=== PATIENT | male | born 1995 | race Caucasian/White ===

== ENCOUNTER 2020-01-22 20:34 | Emergency (ER) | payer SELFPAY ==
--- NOTE | ~2020-01-22 | CT_ITS ---
EXAMINATION: CT facial bones wo con DATE: 01/22/2020 21:11 INDICATION: Facial pain TECHNIQUE: Computed tomography (CT) of the facial bones and maxillofacial region was performed withou t intravenous contrast. The dose-length product (DLP) was 589.20 mGy-cm. Automated exposure control a nd iterative reconstruction technique were employed. COMPARISON: None. FINDINGS: There is subtle irregularity along the anterior aspect of the inferolateral margin of the l eft nasal bone. No additional facial fracture is identified. The orbits are normal. There is normal p neumatization and aeration of the paranasal sinuses. The globes are intact. IMPRESSION: 1. Likely subtle fracture of the left nasal bone. Reviewed, dictated and finalized at location A.
[2020-01-22 20:52] VITALS: BP 152/74; PULSE 62; RESP 18; TEMP 36.2; O2SAT 100
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
== END 2020-01-22 22:48 | disposition home or self-care (01) ==
PROVIDERS: Emergency Provider Emergency Medicine
DX: S02.2XXA Fracture of nasal bones, initial encounter for closed fracture (principal); Y04.2XXA Assault by strike against or bumped into by another person, initial encounter
CPT/HCPCS: 70486; 99284

== ENCOUNTER 2020-01-28 20:44 | Observation (INO) | payer OTHER, SELFPAY ==
--- NOTE | ~2020-01-28 | CT_ITS ---
EXAMINATION: CT facial bones w con EXAM DATE: 01/28/2020 22:13 INDICATION: Nasal drainage. Recent nasal fracture. TECHNIQUE: Spiral CT of the facial bones was acquired in the axial plane following intravenous inject ion of 75 mL Omnipaque 350. Coronal reformatted images were also reviewed. The dose-length product (DLP) for this examination was 713.41 mGy-cm. The exposure was tailored according to patient size, a nd iterative reconstruction (ASIR) was used as additional dose reduction technique. There is no prio r study for comparison. FINDINGS: Again there may be slight buckling of the left nasal bone. Interval development of organiz ed appearing fluid collection within the nasal cavity measuring 2.0 x 2.6 x 3.1 cm, along the cartila ginous nasal septum anteriorly, could be an abscess. This should be able to be seen through direct vi sualization. No bony erosion. The orbits, globes and extraocular muscles are unremarkable. The vis ualized sinuses and mastoid air cells are well aerated. IMPRESSION: 1. Interval development of organized fluid collection along anterior, cartilaginous portion of nasal septum which could be abscess. 2. Probable acute nondisplaced left nasal bone fracture. Reviewed, dictated and finalized at location B. IMPRESSION: 1. Interval development of organized fluid collection along anterior, cartilag inous portion of nasal septum which could be abscess. 2. Probable acute nondisplaced left nasal bone fracture.
[2020-01-28 20:46] VITALS: BP 162/80; PULSE 100; RESP 18; TEMP 37.9; O2SAT 100
[2020-01-28 20:51] VITALS: TEMP 37.2
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
[2020-01-28] MEDS: SODIUM CHLORIDE 0.9% IV 1,000 ML 999 ML IV CONT (21:14)
[2020-01-28] MEDS: CLINDAMYCIN 900 MG/NS 50 ML 900 MG/50 ML PIGGYBACK 50 MG IVPB (21:16)
[2020-01-28 21:25] LABS: Basophils Percent Auto 0.4 % (0.2-1.2); Eosinophils Absolute Auto 0.1 K/mm3 (0-0.3); Eosinophils Percent Auto 0.7 % (0-4.4); Hematocrit 41.4 % (42.0-52.0); Hemoglobin 14.4 g/dL (14.0-18.0); Immature Granulocyte Absolute 0.03 K/mm3 (0.00-0.031); Immature Granulocyte Percent A 0.3 % (0-0.5); Lymphocytes Absolute Auto 0.92 K/mm3 (0.9-3.2); Lymphocytes Percent Auto 9.5 % (18.3-44.2); Mean Corpuscular HGB Conc 34.8 g/dl (32-36); Mean Corpuscular Hemoglobin 30.2 pg (26-34); Mean Corpuscular Volume 86.8 fl (80-100); Mean Platelet Volume 10.4 fl (7.4-10.4); Monocytes Absolute Auto 0.9 K/mm3 (0.1-0.6); Monocytes Percent Auto 8.8 % (2.6-8.5); Neutrophils Absolute Auto 7.7 K/mm3 (1.3-6.7); Neutrophils Percent Auto 80.3 % (45.5-73.1); Platelet Count Result 320 k/mm3 (150-375); Red Blood Count 4.77 M/mm3 (4.6-6.20); Red Cell Distribution Width 12.3 % (11.5-14.5); White Blood Count 9.6 K/mm3 (4.5-10.0)
[2020-01-28 21:33] LABS: Prothrombin Time 12.7 Seconds (11.1-14.7)
[2020-01-28 21:34] LABS: Partial Thromboplastin Time 28.6 SECONDS (22.3-36.8)
[2020-01-28 21:35] LABS: Alanine Aminotransferase 68 U/L (4-50); Albumin Level 4.6 g/dL (3.5-5.1); Alkaline Phosphatase 59 U/L (38-126); Aspartate Amino Transferase 35 U/L (17-59); Bilirubin,Total 2.8 mg/dL (0.2-1.3); Blood Urea Nitrogen 16 mg/dL (9-20); Calcium 9.4 mg/dL (8.4-10.2); Carbon Dioxide 26 mmol/L (22-30); Chloride 99 mmol/L (98-107); Estimated CRCL calculation 98 ml/min; Estimated Glomerular Filt Rate > 60; Glucose 95 mg/dL (75-110); Sodium 136 mmol/L (137-145)
[2020-01-28] MEDS: IBUPROFEN IV 800 MG/200 ML 800 MG/200 ML BAG 400 MG IVPB (22:55)
[2020-01-29] VITALS (13 sets, daily range): BP systolic 115–139; BP diastolic 65–91; PULSE 57–84; RESP 12–18; TEMP 36.2–37.1; O2SAT 92–100; BMI 31.0
--- NOTE | 2020-01-29 01:06 | PC.NURSE ---
This patient, Demarcus Guy, was admitted to Medical Room 260-01 at 0100. Patient/family oriented to hospital policies and general routines including ID bracelet, bed and alarms, visiting hours, pain management, procedures, bathroom and other care routines, personal items, smoking policy, room service/diet, and visiting hours. Valuables list has been completed. Information on how to activate the Rapid Response Team has been discussed. Patient/Family are encouraged to report perceived risks to care and to ask questions if they do not understand what they are told or what they should do.
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
[2020-01-29] MEDS: CLINDAMYCIN 900 MG/NS 50 ML 900 MG/50 ML PIGGYBACK 50 MG IVPB ×2 (04:59→12:40)
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
--- NOTE | 2020-01-29 12:32 | WPDANESEPPF ---
Anes - Initial Pre Proc Eval Procedure: Operation Date: 01/29/20 16:30 Proposed Procedures p Incision and Drainage of Nasal Abscess - Freddie High MD Date/Time: 01/29/20 12:32 Surgeon: Elaine Puentes PA-C Pre Op Diagnosis: Yellow nasal drainage, fever Patient Data Age: 24 Gender: M Height: 5 ft 10 in Weight: 98.2 kg Last Vital Signs Temp 36.2 C L 01/29/20 06:00 Pulse 57 L 01/29/20 08:00 Resp 16 01/29/20 08:00 BP 121/82 01/29/20 06:00 Pulse Ox 98 01/29/20 08:00 Allergies Allergy/AdvReac Type Severity Reaction Status Date / Time No Known Allergies Allergy Verified 01/28/20 20:52 Home Medications Medication Instructions Recorded Confirmed Type clindamycin HCl 150 mg PO Q8H 10 Days #30 cap 01/28/20 Rx ibuprofen [IBU] 600 mg PO QID PRN #10 tablet 01/28/20 Rx Laboratory Tests 01/28/20 01/28/20 01/28/20 21:17 21:17 21:17 WBC 9.6 K/mm3 K/mm3 (4.5-10.0) RBC 4.77 M/mm3 M/mm3 (4.6-6.20) Hgb 14.4 g/dL g/dL (14.0-18.0) Hct 41.4 % L % (42.0-52.0) MCV 86.8 fl fl (80-100) MCH 30.2 pg pg (26-34) MCHC 34.8 g/dl g/dl (32-36) RDW 12.3 % % (11.5-14.5) Plt Count 320 k/mm3 k/mm3 (150-375) MPV 10.4 fl fl (7.4-10.4) Immature Gran % (Auto) 0.3 % % (0-0.5) Neut % (Auto) 80.3 % H % (45.5-73.1) Lymph % (Auto) 9.5 % L % (18.3-44.2) [place] % (Auto) 8.8 % H % (2.6-8.5) Eos % (Auto) 0.7 % % (0-4.4) Baso % (Auto) 0.4 % % (0.2-1.2) Lymph # (Auto) 0.92 K/mm3 K/mm3 (0.9-3.2) [place] # (Auto) 0.9 K/mm3 H K/mm3 (0.1-0.6) Eos # (Auto) 0.1 K/mm3 K/mm3 (0-0.3) Baso # (Auto) 0.0 K/mm3 K/mm3 (0.0-0.1) Abs Immat Gran (auto) 0.03 K/mm3 K/mm3 (0.00-0.031) Absolute Neuts (auto) 7.7 K/mm3 H K/mm3 (1.3-6.7) Absolute Nucleated RBC 0.0 K/mm3 K/mm3 (0.0-0.012) Nucleated RBC % 0.0 % % (0.0-0.2) PT 12.7 Seconds Seconds (11.1-14.7) INR 1.0 APTT 28.6 SECONDS SECONDS (22.3-36.8) Sodium 136 mmol/L L mmol/L (137-145) Potassium 4.0 mmol/L mmol/L (3.4-5.0) Chloride 99 mmol/L mmol/L (98-107) Carbon Dioxide 26 mmol/L mmol/L (22-30) BUN 16 mg/dL mg/dL (9-20) Creatinine 1.20 mg/dL mg/dL (0.7-1.3) Estim Creat Clear Calc 98 ml/min ml/min Estimated GFR > 60 (59 - ) Glucose 95 mg/dL mg/dL (75-110) Calcium 9.4 mg/dL mg/dL (8.4-10.2) Total Bilirubin 2.8 mg/dL H mg/dL (0.2-1.3) AST 35 U/L U/L (17-59) ALT 68 U/L H U/L (4-50) Alkaline Phosphatase 59 U/L U/L (38-126) Total Protein 8.0 g/dL g/dL (6.3-8.2) Albumin 4.6 g/dL g/dL (3.5-5.1) Patient hx anesthesia problems: none Family hx anesthesia problems: none [facility] Past Medical History Medical History No significant medical problems Surgical History Surgical History Hx of cholecystectomy Family History Family History Father Healthy adult Mother Healthy adult Social History Social History Smoking status: Never smoker Tobacco type: smokeless tobacco Smokeless tobacco user: chewing tobacco Second hand tobacco smoke exposure: No Additional smoking assessment comments: He has chewed tobacco since he was a teenager. Alcohol intake: current Drinks per week: 4 Alcohol use details: He drinks 3-4 alcoholic beverages each week. Substance use: never Substance use type: does not use Additional occupation/education comments: He works in [employer]
[2020-01-29] MEDS: LACTATED RINGERS 1,000 ML 30 ML IV CONT (12:35)
[2020-01-29] MEDS: OXYMETAZOLINE HCL 0.05% NAS 15 ML BTL (*BKC) 1 SPRAY NASAL (13:00)
[2020-01-29] MEDS: LIDO 1%/EPINEPHRINE 1:100,000 20 ML VIAL 5 ML INFILTRATE (13:00)
--- NOTE | 2020-01-29 13:03 | PM.PROC ---
Procedure Note - Detailed Date of procedure: 01/29/20 Pre-op diagnosis: Yellow nasal drainage, fever Nasal septal abscess, septal fracture Post-op diagnosis: same Procedure performed: Incision and drainage of nasal septal abscess, reduction of septal fracture. Description of procedure: On the date of surgery, the patient was seen as a consult on the surgical floor. Decision made to undergo surgery. He was brought to the OR and underwent GETA. Timeout performed and he was draped in sterile fashion. 1% lidocaine was infiltrated into the nasal septum, and afrin cottonoids placed bilaterally. On the right side, the abscess was lanced with a 15 blade. 10-15cc of purulent absces fluid was evacuated. This may have been a septal hematoma that was then infected. The cavity was copiously irrigated. There was evidence of loss of a portion of the cartilaginous septum. The septum that remained was noted to be severely deviated to the left. [place] forceps were used to grasp the septum and try and reapproximate to the midline. This appeared to improve the positioning of the septum, although still with some deviation. This will likely require elective repair at a later date. Care of patient then returned to anesthesia who extubated him, woke him up and transferred to PACU for recovery in stable condition. Anesthesia: GETA Surgeon: Freddie High MD Estimated blood loss (mL): 10 Drains: No Packing: No Pathology: yes (culture of infection taken) Complications: None Condition: stable Disposition: floor Findings: Septal abscess, 10-15ml. Reduced septal fracture.
--- NOTE | 2020-01-29 13:08 | WPDPN ---
Progress Note: A&P Assessment and Plan (1) Nasal septal abscess: Code(s): J34.0 - Abscess, furuncle and carbuncle of nose Status: Acute Assessment and Plan: Underwent successful I&D. Should be ok to transition to PO antibiotics and discharge home per primary team. Would like to follow up in the clinic this . Call with questions or concerns. Objective Data Vital Signs Vital Signs: Vital Signs - 24 hr 01/28/20 20:46 01/28/20 20:51 01/29/20 01:00 Temperature 37.9 C H 37.2 C 36.7 C Pulse Rate 100 84 Respiratory Rate 18 18 Blood Pressure 162/80 H 136/81 Pulse Oximetry 100 99 01/29/20 01:21 01/29/20 01:49 01/29/20 06:00 Temperature 36.9 C 36.2 C L Pulse Rate 72 57 L Respiratory Rate 18 16 Blood Pressure 115/65 121/82 Pulse Oximetry 98 96 98 01/29/20 08:00 Temperature Pulse Rate 57 L Respiratory Rate 16 Blood Pressure Pulse Oximetry 98 Intake/Output Intake/Output: Intake & Output 01/26/20 01/27/20 01/28/20 01/29/20 23:59 23:59 23:59 23:59 Intake Total 1250 50 Output Total 550 Balance 1250 -500 Meds/Results Medications: Active Medications Generic Name Dose Route Start Last Admin Trade Name Freq PRN Reason Stop Dose Admin Fentanyl Citrate 25 mcg 01/29/20 12:33 Sublimaze IV PUSH Q2M PRN Pain Clindamycin/Sodium Chloride 900 mg in 50 mls @ 50 mls/hr 01/29/20 05:00 01/29/20 12:40 Cleocin 900 Mg/Ns 50 Ml IVPB 50 mls/hr Q8H WILLIAM Administration Lactated Ringer's 1,000 mls @ 30 mls/hr 01/29/20 12:35 01/29/20 12:35 Lr - Lactated Ringers Iv IV CONT 30 mls/hr .Q24H WILLIAM Administration Lactated Ringer's 1,000 mls @ 30 mls/hr 01/29/20 12:35 Lr - Lactated Ringers Iv IV CONT .Q24H WILLIAM Lidocaine/Epinephrine 5 ml 01/29/20 13:00 01/29/20 13:00 Lido 1%/Epinephrine 1:100,000 INFILTRATE 01/29/20 13:01 20 ml ONCE ONE Administration Ondansetron HCl 4 mg 01/29/20 00:01 Zofran Inj IV PUSH Q4H PRN Nausea Ondansetron HCl 4 mg 01/29/20 12:33 Zofran Inj IV PUSH ONCE PRN Nausea Oxymetazoline HCl 1 spray 01/29/20 13:00 01/29/20 13:00 Afrin Nasal NASAL 1 spray ONCE PRN Administration Congestion Radiology Results: ITS Impressions Face CT 01/29/20 08:24 IMPRESSION: 1. Interval development of organized fluid collection along anterior, cartilaginous portion of nasal septum which could be abscess. 2. Probable acute nondisplaced left nasal bone fracture. Labs Labs: Laboratory Results - last 24 hr 01/28/20 01/28/20 01/28/20 21:17 21:17 21:17 WBC 9.6 RBC 4.77 Hgb 14.4 Hct 41.4 L MCV 86.8 MCH 30.2 MCHC 34.8 RDW 12.3 Plt Count 320 MPV 10.4 Immature Gran % (Auto) 0.3 Neut % (Auto) 80.3 H Lymph % (Auto) 9.5 L [place] % (Auto) 8.8 H Eos % (Auto) 0.7 Baso % (Auto) 0.4 Lymph # (Auto) 0.92 [place] # (Auto) 0.9 H Eos # (Auto) 0.1 Baso # (Auto) 0.0 Abs Immat Gran (auto) 0.03 Absolute Neuts (auto) 7.7 H Absolute Nucleated RBC 0.0 Nucleated RBC % 0.0 PT 12.7 INR 1.0 APTT 28.6 Sodium 136 L Potassium 4.0 Chloride 99 Carbon Dioxide 26 BUN 16 Creatinine 1.20 Estim Creat Clear Calc 98 Estimated GFR > 60 Glucose 95 Calcium 9.4 Total Bilirubin 2.8 H AST 35 ALT 68 H Alkaline Phosphatase 59 Total Protein 8.0 Albumin 4.6
--- NOTE | 2020-01-29 15:17 | PM.DS ---
DS: Admitting Diagnosis Admitting Diagnosis Admitting Diagnosis: Abscess, furuncle and carbuncle of nose DS: Discharge Diagnosis Discharge Diagnosis (1) Nasal septal abscess: Code(s): J34.0 - Abscess, furuncle and carbuncle of nose Status: Acute Assessment and Plan: He had a recent nasal fracture on 01/22/2020 and presented with purulent nasal drainage and fever with T-max 100.3?. Facial CT demonstrated heterogenous rim enhancing lobulated fluid collection measuring 2 x 2.6 x 3.1 cm abscess within the cartilaginous septum. He was seen in consultation by ENT and underwent incision and drainage of nasal septal abscess and septal fracture reduction by Dr. High on 01/29/2020. He was started on IV clindamycin and he will continue oral clindamycin as an outpatient. He will follow-up with Dr. High in 3 days. He was instructed to use nasal saline spray 3 times per day. DS: Summary Hospital Course Reason for hospitalization: Nasal pain Hospital Course: Date of admission: 01/28/2020 Date of discharge: 01/29/2020 Demarcus Guy is a 24-year-old male with a history of recent nasal fracture on 01/22/2020 who presented to the emergency department on 01/29/2020 with complaints of purulent drainage from the left nostril and fever with T-max of 100.3?. At presentation, HR 100, BP 162/80, T 100.3?, an WBC 9.6. He was admitted to the hospitalist service and was seen in consultation by ENT. He underwent incision and drainage on 01/29/2020. His fever resolved. His pain was well controlled and he tolerated the procedure well. Given clinical improvement, he was determined to no longer require inpatient care. He will continue oral antibiotics and follow-up with Dr. High in 3 days. He was also recommended to establish care with a primary care provider and schedule an appointment within 1-2 weeks to discuss his hospital stay. Status at Discharge Functional status at discharge: independent ambulation Overall status at discharge: patient is progressing back to baseline Time Spent with Patient Time attestation: Total time spent providing and/or coordinating discharge services: 33 minutes Time spent: Greater than 30 minutes Exam Narrative: Exam Narrative: Mr. Guy is examined alone today. He is a well-nourished 24-year-old male who is lying supine in bed. He appears comfortable and is in no acute respiratory distress. HR 57, BP 121/82, R 16, T 97.1?, 98% on room air Neuro: awake, alert and oriented x4, speech clear, no focal neuro deficits noted HEENMT: normocephalic, EOMI, sclerae anicteric, nares covered with bandage with scant dried blood, atraumatic nose, moist oral mucosa, normal oropharynx Neck: supple, no lymphadenopathy Respiratory: clear to auscultation bilaterally, normal respiratory effort without accessory muscle use Cardio: regular rate, regular rhythm, normal S1 and S2 Abdomen: normal to inspection, nondistended, normoactive bowel sounds, soft, nontender Extremities: BLE without edema, erythema, or pain to palpation, dorsal pedis pulses palpable bilaterally Skin: no rashes or lesions, warm and dry Psych: Pleasant and cooperative, normal mood and affect, judgment and insight intact DS: Data Data Completed and Pending Labs on day of discharge: Labs from last 24 hours 01/28/20 01/28/20 01/28/20 21:17 21:17 21:17 WBC 9.6 RBC 4.77 Hgb 14.4 Hct 41.4 L MCV 86.8 MCH 30.2 MCHC 34.8 RDW 12.3 Plt Count 320 MPV 10.4 Immature Gran % (Auto) 0.3 Neut % (Auto) 80.3 H Lymph % (Auto) 9.5 L Adams % (Auto) 8.8 H Eos % (Auto) 0.7 Baso % (Auto) 0.4 Lymph # (Auto) 0.92 Adams # (Auto) 0.9 H Eos # (Auto) 0.1 Baso # (Auto) 0.0 Abs Immat Gran (auto) 0.03 Absolute Neuts (auto) 7.7 H Absolute Nucleated RBC 0.0 Nucleated RBC % 0.0 PT 12.7 INR 1.0 APTT 28.6 Sodium 136 L Potassium 4.0 Chloride 99 Carbon Dioxide 26
--- NOTE | 2020-01-29 15:31 | PC.NURSE ---
Return from the OR.
== END 2020-01-29 16:10 | disposition home or self-care (01) ==
LOC: ANHED 21:12 → ANH2MED 01-29 00:22
PROVIDERS: Emergency Medicine Emergency Medical Services; Otolaryngology; Admitting Provider Internal Medicine; Emergency Provider Emergency Medicine; Visit Provider Hospitalist
PROC: (CPT 21315; principal; 2020-01-29 16:30)
DX: S02.2XXA Fracture of nasal bones, initial encounter for closed fracture (principal); W50.0XXA Accidental hit or strike by another person, initial encounter; J34.0 Abscess, furuncle and carbuncle of nose; F17.220 Nicotine dependence, chewing tobacco, uncomplicated
CPT/HCPCS: 21315; 30020; 36415; 70487; 80053; 85025; 85610; 85730; 96365; 96367; 99285; A9270; G0378; J0330; J1100; J1741; J2250; J2405; J2704; J3010; J7030; J7120; Q9967